=== PATIENT | male | born 1965 ===

== ENCOUNTER → 2016-11-12 | Outpatient (CLI) | payer OTHER ==
[2016-11-13 01:31] LABS: VANC TR 11.3 mcg/mL (10.0-20.0)
== END | disposition home or self-care (01) ==
LOC: SPEC 23:55
PROVIDERS: ATTEND Nurse Practitioner Family
DX: B95.62 Methicillin resistant Staphylococcus aureus infection as the cause of diseases classified elsewhere (principal)
CPT/HCPCS: 36415; 80202